=== PATIENT | female | born 1990 | race Caucasian/White ===

== ENCOUNTER 2020-06-23 06:05 | Observation (INO) | payer OTHER ==
[~2020-06-23] VITALS: Ht 170.2 cm; Wt 122.0 kg
[2020-06-23 06:36] LABS: MICROSCOPIC INDICATED
[2020-06-23] MEDS: LACTATED RINGERS 1,000 ML IV SCH ×2 (06:45→09:15)
[2020-06-23 07:00] VITALS: BP 144/101
[2020-06-23] MEDS ORDERED: ONDANSETRON 2MG/ML, 2ML IVPush PRN (07:00)
[2020-06-23] MEDS ORDERED: LACTATED RINGERS 500 ML IVBOLUS ONE (07:00)
[2020-06-23] MEDS ORDERED: PLEASE ENTER ALLERGIES MC SCH (07:00)
[2020-06-23] MEDS ORDERED: PLEASE ENTER HEIGHT AND WEIGHT MC SCH (07:00)
[2020-06-23 07:25] LABS: BASOPHILS % (AUTO) 0 % (0-1); EOSINOPHILS % (AUTO) 0 % (1-7); LYMPHOCYTES % (AUTO) 10 % (22-44); MEAN CORPUSCULAR HEMOGLOBIN 31.2 pg (27.0-34.8); MEAN CORPUSCULAR HGB CONC 33.6 g/dL (32.4-35.8); MEAN PLATELET VOLUME 9.1 fL (7.4-10.4); MONOCYTES % (AUTO) 5 % (2-9); NEUTROPHILS % (AUTO) 84 % (42-75); PLATELET COUNT 220 x10^3/uL (130-400); RED BLOOD COUNT 4.06 x10^6/uL (3.82-5.3); RED CELL DISTRIBUTION WIDTH 13.6 % (9.6-15.2)
[2020-06-23 07:27] LABS: ALANINE AMINOTRANSFERASE 14 U/L (12-78); ALBUMIN 2.7 g/dL (3.4-5.0); ANION GAP 6 mmol/L (5-15); CALCIUM 9.1 mg/dL (8.5-10.1); CHLORIDE 110 mmol/L (98-107)
[2020-06-23 07:29] LABS: MD NO
[2020-06-23 07:30] LABS: ALKALINE PHOSPHATASE 134 U/L (45-117); BILIRUBIN,TOTAL 0.3 mg/dL (0.2-1.0); CREATININE 0.87 mg/dL (0.55-1.02); TOTAL PROTEIN 6.5 g/dL (6.4-8.2)
[2020-06-23 07:32] LABS: BILIRUBIN, DIRECT < 0.1 mg/dL (0.1-0.2)
[2020-06-23] MEDS ORDERED: PREN1TAB10 PO (09:50)
[2020-06-23 09:58] VITALS: BP 135/86
[2020-06-23 10:44] LABS: CREATININE,URINE RANDOM 89.8 mg/dL
== END 2020-06-23 10:20 | disposition home or self-care (01) ==
LOC: LDOP 06:05 → LDIP 06:34 → UNDODISOB 10:20
PROVIDERS: ADMIT Obstetrics & Gynecology; ATTEND Obstetrics & Gynecology
DX: O26.893 Other specified pregnancy related conditions, third trimester (principal); R10.9 Unspecified abdominal pain; R09.89 Other specified symptoms and signs involving the circulatory and respiratory systems; O21.2 Late vomiting of pregnancy; O99.213 Obesity complicating pregnancy, third trimester; E66.9 Obesity, unspecified; Z3A.35 35 weeks gestation of pregnancy
CPT/HCPCS: 36415; 59025; 76770; 80053; 81001; 82248; 82570; 84156; 84550; 85025; 87086; 96360; 96361; G0378; J7120

== ENCOUNTER 2020-07-23 01:10 | Inpatient (IN) | payer OTHER ==
[~2020-07-23] VITALS: Ht 170.2 cm; Wt 127.2 kg
[~2020-07-23 01:10] MED LIST: PREN1TAB10 PO
[2020-07-24] MEDS ORDERED: LIDOCAINE 1%, 20ML ONE ×2 (05:25→05:49)
[2020-07-24] MEDS ORDERED: NEWBORN KIT ONE (05:25)
[2020-07-24] MEDS ORDERED: MISOPROSTOL 200 MCG TABLET ONE ×2 (05:26→05:49)
[2020-07-24] MEDS ORDERED: OXYTOCIN 30U/ 0.9% NaCL 500ML 500 ML ONE (05:26)
[2020-07-24] MEDS ORDERED: TERBUTALINE 1 MG/ML, 1ML SQ PRN (05:30)
[2020-07-24] MEDS ORDERED: OXYTOCIN 30U/ 0.9% NaCL 500ML 500 ML IV ONE (05:30)
[2020-07-24] MEDS ORDERED: OXYTOCIN 30U/ 0.9% NaCL 500ML 500 ML IV PRN (05:30)
[2020-07-24] MEDS ORDERED: ONDANSETRON 2MG/ML, 2ML IVPush PRN ×2 (05:30→22:30)
[2020-07-24] MEDS ORDERED: FENTANYL PF 100 MCG/2ML IVPush PRN (05:30)
[2020-07-24] MEDS ORDERED: FENTANYL PF 100 MCG/2ML IV PRN (05:30)
[2020-07-24] MEDS ORDERED: TERBUTALINE 1 MG/ML, 1ML IVPush PRN (05:30)
[2020-07-24] MEDS ORDERED: SODIUM CITRATE/CITRIC ACID 30 ML UDC PO PRN (05:30)
[2020-07-24 05:31] VITALS: BP 141/86
[2020-07-24 05:43] LABS: BASOPHILS % (AUTO) 0 % (0-1); EOSINOPHILS % (AUTO) 1 % (1-7); LYMPHOCYTES % (AUTO) 20 % (22-44); MEAN CORPUSCULAR HEMOGLOBIN 31.7 pg (27.0-34.8); MEAN CORPUSCULAR HGB CONC 34.2 g/dL (32.4-35.8); MEAN PLATELET VOLUME 9.5 fL (7.4-10.4); MONOCYTES % (AUTO) 6 % (2-9); NEUTROPHILS % (AUTO) 73 % (42-75); PLATELET COUNT 215 x10^3/uL (130-400); RED BLOOD COUNT 4.11 x10^6/uL (3.82-5.3)
[2020-07-24 05:44] LABS: MD NO
[2020-07-24] MEDS: LACTATED RINGERS 1,000 ML IV SCH ×3 (05:46→20:07)
[2020-07-24] MEDS ORDERED: D5%-LACTATED RINGERS 1,000 ML IV SCH (06:30)
[2020-07-24] MEDS ORDERED: PENICILLIN GK 5,000,000 UNITS in DEXTROSE 5% 100 ML IVPB ONE (06:30)
[2020-07-24] MEDS: PENICILLIN GK 2,500,000 UNITS in DEXTROSE 5% 100 ML IVPB SCH ×4 (10:02→22:19)
[2020-07-24 14:48] LABS: ALANINE AMINOTRANSFERASE 15 U/L (12-78); ALBUMIN 2.6 g/dL (3.4-5.0); ANION GAP 5 mmol/L (5-15); CALCIUM 8.6 mg/dL (8.5-10.1); CHLORIDE 110 mmol/L (98-107); CREATININE 0.63 mg/dL (0.55-1.02)
[2020-07-24 14:50] LABS: ALKALINE PHOSPHATASE 173 U/L (45-117); BILIRUBIN,TOTAL 0.2 mg/dL (0.2-1.0); TOTAL PROTEIN 6.6 g/dL (6.4-8.2)
[2020-07-24 15:05] LABS: CREATININE,URINE RANDOM 46.6 mg/dL
[2020-07-24] MEDS ORDERED: BUPIVACAINE 0.25% ONE (21:53)
[2020-07-24] MEDS ORDERED: FENTANYL/BUPIV./NS/PF 250 ML EPIDCONT ONE (21:53)
[2020-07-24] MEDS ORDERED: NALOXONE 0.4 MG/ML, 1ML IVPush PRN (22:30)
[2020-07-24] MEDS ORDERED: FENTANYL/BUPIV./NS/PF 250 ML EPIDCONT SCH (22:30)
[2020-07-24] MEDS ORDERED: EPHEDRINE 50 MG/ML, 1ML IVPush PRN (22:30)
[2020-07-24] MEDS ORDERED: DIPHENHYDRAMINE 50 MG/ML, 1ML IVPush PRN (22:30)
[2020-07-24] MEDS ORDERED: LACTATED RINGERS 1,000 ML IV SCH (22:30)
[2020-07-24] MEDS ORDERED: LACTATED RINGERS 1,000 ML IVBOLUS PRN (22:30)
[2020-07-25] MEDS: PENICILLIN GK 2,500,000 UNITS in DEXTROSE 5% 100 ML IVPB SCH ×2 (02:04→06:23)
[2020-07-25] MEDS ORDERED: HYDROcodone/APAP 5/325 TABLET PO PRN (08:30)
[2020-07-25] MEDS ORDERED: RHOGAM FROM BLOOD BANK 1 NOTE EA IM/IV ONE (08:30)
[2020-07-25] MEDS ORDERED: MISOPROSTOL 200 MCG TABLET PR PRN (08:30)
[2020-07-25] MEDS: DOCUSATE 100 MG CAPSULE PO SCH ×2 (08:30→22:35)
[2020-07-25] MEDS ORDERED: MEASLES,MUMPS&RUBELLA VACC/PF 0.5 ML SQ-VACC PRN (08:30)
[2020-07-25] MEDS ORDERED: MAGNESIUM HYDROXIDE 8%, 30ML UDC PO PRN (08:30)
[2020-07-25] MEDS: OXYTOCIN 30U/ 0.9% NaCL 500ML 500 ML IV SCH ×2 (08:30→18:30)
[2020-07-25] MEDS ORDERED: ACETAMINOPHEN 325 MG TABLET PO PRN ×2 (08:30)
[2020-07-25] MEDS ORDERED: DOCUSATE 100 MG CAPSULE PO PRN (08:30)
[2020-07-25] MEDS: PRENATAL VIT/IRON/FA 1 EACH TABLET PO SCH (09:00)
[2020-07-25] MEDS: IBUPROFEN 600 MG TABLET PO PRN ×3 (09:33→22:35)
[2020-07-25] MEDS: HYDROcodone/APAP 5/325 TABLET PO PRN ×4 (09:34→22:36)
[2020-07-25 11:00] VITALS: BP 108/75
[2020-07-25 15:24] LABS: BASOPHILS % (AUTO) 1 % (0-1); EOSINOPHILS % (AUTO) 0 % (1-7); LYMPHOCYTES % (AUTO) 8 % (22-44); MEAN CORPUSCULAR HEMOGLOBIN 31.4 pg (27.0-34.8); MEAN CORPUSCULAR HGB CONC 33.5 g/dL (32.4-35.8); MEAN PLATELET VOLUME 9.6 fL (7.4-10.4); MONOCYTES % (AUTO) 4 % (2-9); NEUTROPHILS % (AUTO) 88 % (42-75); PLATELET COUNT 199 x10^3/uL (130-400); RED BLOOD COUNT 3.19 x10^6/uL (3.82-5.3); RED CELL DISTRIBUTION WIDTH 14.2 % (9.6-15.2)
[2020-07-25 15:54] LABS: MD SCAN
[2020-07-25 16:30] VITALS: BP 112/79
[2020-07-25 20:30] VITALS: BP 129/81
[2020-07-26 00:15] VITALS: BP 106/75
[2020-07-26] MEDS: HYDROcodone/APAP 5/325 TABLET PO PRN ×3 (03:07→11:31)
[2020-07-26] MEDS: OXYTOCIN 30U/ 0.9% NaCL 500ML 500 ML IV SCH (04:30)
[2020-07-26] MEDS: IBUPROFEN 600 MG TABLET PO PRN ×2 (04:49→11:31)
[2020-07-26 07:20] VITALS: BP 125/82
[2020-07-26] MEDS: DOCUSATE 100 MG CAPSULE PO SCH (08:32)
[2020-07-26] MEDS: PRENATAL VIT/IRON/FA 1 EACH TABLET PO SCH (09:00)
[2020-07-26] MEDS ORDERED: DOCU-131 PO (10:02)
[2020-07-26] MEDS ORDERED: HYDR-1067 PO (10:02)
[2020-07-26] MEDS ORDERED: IBUP-1222 PO (10:02)
== END 2020-07-26 11:55 | disposition home or self-care (01) | DRG 768 ==
LOC: LDIP 07-24 05:13 → 2NW 07-25 10:15
PROVIDERS: ADMIT Obstetrics & Gynecology; ATTEND Obstetrics & Gynecology
PROC: 10E0XZZ Delivery of Products of Conception, External Approach (ICD-10-PCS; principal; 2020-07-25)
PROC: 0DQR0ZZ Repair Anal Sphincter, Open Approach (ICD-10-PCS; 2020-07-25)
PROC: 0UQGXZZ Repair Vagina, External Approach (ICD-10-PCS; 2020-07-25)
PROC: 3E0R3BZ Introduction of Anesthetic Agent into Spinal Canal, Percutaneous Approach (ICD-10-PCS; 2020-07-25)
PROC: 00HU33Z Insertion of Infusion Device into Spinal Canal, Percutaneous Approach (ICD-10-PCS; 2020-07-25)
PROC: 10907ZU Drainage of Amniotic Fluid, Diagnostic from Products of Conception, Via Natural or Artificial Opening (ICD-10-PCS; 2020-07-25)
PROC: 0UQMXZZ Repair Vulva, External Approach (ICD-10-PCS; 2020-07-25)
PROC: 3E0234Z Introduction of Serum, Toxoid and Vaccine into Muscle, Percutaneous Approach (ICD-10-PCS; 2020-07-25)
DX: O99.824 Streptococcus B carrier state complicating childbirth (principal); Z37.0 Single live birth; Z20.822 Contact with and (suspected) exposure to COVID-19; O70.20 Third degree perineal laceration during delivery, unspecified; Z23 Encounter for immunization; Z3A.39 39 weeks gestation of pregnancy
CPT/HCPCS: 36415; 80053; 82570; 84156; 84550; 85025; 86592; 86850; 86900; 87635; G0378; J2540; J2590; J7120